=== PATIENT | male | born 1980 | race Caucasian/White ===

== ENCOUNTER 2017-04-25 09:30 | Inpatient (IN) | payer MEDICARE ==
[~2017-04-25] VITALS: Ht 170.2 cm; Wt 77.1 kg
[2017-04-25] MEDS ORDERED: OLAN10TA3 PO (09:52)
[2017-04-25] MEDS ORDERED: VIST50 PO (09:52)
[2017-04-25] MEDS ORDERED: DIVA500T52 PO (09:52)
[2017-04-25 10:06] LABS: BASOPHILS % (AUTO) 0.7 % (0.0-2.0); EOSINOPHILS % (AUTO) 0.1 % (1.0-6.0); HEMATOCRIT 35.7 % (41-53); HEMOGLOBIN 12.4 g/dL (13.5-17.5); LYMPHOCYTES # (AUTO) 2.6 K/uL (1.0-4.8); LYMPHOCYTES % (AUTO) 19.7 % (22.0-44.0); MEAN CORPUSCULAR HEMOGLOBIN 30.3 pg (26.0-34.0); MEAN CORPUSCULAR HGB CONC 34.7 G/dL (31.0-37.0); MEAN CORPUSCULAR VOLUME 87 fL (80-100); MONOCYTES # (AUTO) 1.3 K/uL (0.1-1.0); MONOCYTES % (AUTO) 9.6 % (2.0-9.0); NEUTROPHILS # (AUTO) 9.3 K/uL (1.8-7.7); NEUTROPHILS % (AUTO) 69.9 % (40.0-70.0); PLATELET COUNT (AUTO) 205 K/uL (150-450); RED BLOOD CELL COUNT(AUTO) 4.09 MIL/uL (4.50-5.90); RED CELL DISTRIBUTION WIDTH 14.1 % (11.5-14.5)
[2017-04-25] MEDS ORDERED: HALOPERIDOL 5 MG TABLET PO ONE (10:15)
[2017-04-25] MEDS ORDERED: AMOX TR/POT CLAV 875 MG/125 MG TABLET PO ONE (10:15)
[2017-04-25] MEDS ORDERED: LORazepam 2 MG TABLET PO ONE (10:15)
[2017-04-25 10:18] LABS: ANION GAP 10 mmol/L (8-16); CALCIUM, TOTAL 8.8 mg/dL (8.8-10.5); CARBON DIOXIDE 28 mmol/L (22-29); CHLORIDE 101 mmol/L (98-107); CREATININE 1.12 mg/dL (0.60-1.30); GLOMERULAR FILTR. RATE CALC > 60 mL/min (>60); GLUCOSE,RANDOM 94 mg/dL (70-110); POTASSIUM 4.2 mmol/L (3.5-5.1); SODIUM SERUM 139 mmol/L (136-145); UREA NITROGEN, BLOOD 24 mg/dL (7-18)
[2017-04-25 10:23] LABS: ALANINE AMINOTRANSFERASE 36 U/L (12-78); ALBUMIN 3.6 g/dL (3.4-5.0); ALKALINE PHOSPHATASE 73 U/L (46-116); ASPARTATE AMINOTRANSFERASE 41 U/L (15-37); BILIRUBIN,TOTAL 0.6 mg/dL (0.1-1.0); TOTAL PROTEIN, SERUM 7.8 g/dL (6.4-8.2)
[2017-04-25] MEDS: PERTUSS(ACELL),DIPH,TET VAC/PF 0.5 ML VIAL IM ONE ×2 (10:48→10:54)
[2017-04-25] MEDS ORDERED: ACETAMINOPHEN 325 MG TABLET PO PRN (13:45)
[2017-04-25] MEDS ORDERED: BACITRACIN 28.4 GM OINTMENT TP PRN (13:45)
[2017-04-25] MEDS ORDERED: LOPERAMIDE HCL 2 MG CAPSULE PO PRN (13:45)
[2017-04-25] MEDS ORDERED: MAGNESIUM HYDROXIDE SUSPENSION 30 ML UDCUP PO PRN (13:45)
[2017-04-25] MEDS ORDERED: PETROLATUM,WHITE 71 GM JELLY TP PRN (13:45)
[2017-04-25] MEDS ORDERED: BENZOCAINE/MENTHOL LOZENGE MM PRN (13:45)
[2017-04-25] MEDS ORDERED: ALBUTEROL SULFATE HFA 90 MCG/PUFF 8 GM INHALER IH PRN (13:45)
[2017-04-25] MEDS ORDERED: CloNIDine HCL 0.1 MG TABLET PO PRN (13:45)
[2017-04-25] MEDS ORDERED: ONDANSETRON HCL 4 MG TABLET PO PRN (13:45)
[2017-04-25] MEDS ORDERED: MAG HYDROX/AL HYDROX/SIMETH ES 30 ML SUSPENSION UDCUP PO PRN (13:45)
[2017-04-25 16:00] VITALS: BP 116/71
[2017-04-25] MEDS: MUPIROCIN CALCIUM 2% 15 GM CREAM TP SCH (17:16)
[2017-04-25] MEDS: AMOX TR/POT CLAV 875 MG/125 MG TABLET PO SCH (17:16)
[2017-04-25] MEDS: HALOPERIDOL 5 MG TABLET PO SCH (17:16)
[2017-04-25] MEDS: BENZTROPINE MESYLATE 1 MG TABLET PO SCH (17:16)
[2017-04-25] MEDS: LORazepam 2 MG TABLET PO PRN (17:17)
[2017-04-26] MEDS ORDERED: PNEUMOCOCCAL VACCINE POLYVALENT 0.5 ML VIAL [PPSV23] IM ONE (00:45)
[2017-04-26] MEDS ORDERED: INFLUENZA VIRUS VACCINE QVS 2017-18 (3YR+)/PF 60 MCG/0.5 ML SYRINGE IM ONE (02:30)
[2017-04-26 06:31] VITALS: BP 119/63
[2017-04-26 08:16] VITALS: BP 109/65
[2017-04-26 08:28] LABS: BASOPHILS % (AUTO) 0.2 % (0.0-2.0); EOSINOPHILS % (AUTO) 0.1 % (1.0-6.0); HEMATOCRIT 38.1 % (41-53); LYMPHOCYTES # (AUTO) 1.7 K/uL (1.0-4.8); LYMPHOCYTES % (AUTO) 12.8 % (22.0-44.0); MEAN CORPUSCULAR HEMOGLOBIN 30.1 pg (26.0-34.0); MEAN CORPUSCULAR HGB CONC 34.2 G/dL (31.0-37.0); MEAN CORPUSCULAR VOLUME 88 fL (80-100); MONOCYTES # (AUTO) 1.4 K/uL (0.1-1.0); MONOCYTES % (AUTO) 10.7 % (2.0-9.0); NEUTROPHILS # (AUTO) 9.9 K/uL (1.8-7.7); NEUTROPHILS % (AUTO) 76.2 % (40.0-70.0); PLATELET COUNT (AUTO) 198 K/uL (150-450); RED BLOOD CELL COUNT(AUTO) 4.33 MIL/uL (4.50-5.90); RED CELL DISTRIBUTION WIDTH 14.2 % (11.5-14.5)
[2017-04-26 08:33] LABS: CHOL/HDL RATIO 3.1 (4.2-7.3); THYROID STIMULATING HORMONE 1.09 uIU/mL (0.36-3.74)
[2017-04-26] MEDS: BENZTROPINE MESYLATE 1 MG TABLET PO SCH ×2 (09:03→17:49)
[2017-04-26] MEDS: HALOPERIDOL 5 MG TABLET PO SCH ×2 (09:03→17:49)
[2017-04-26] MEDS: AMOX TR/POT CLAV 875 MG/125 MG TABLET PO SCH ×2 (09:03→17:49)
[2017-04-26] MEDS: MUPIROCIN CALCIUM 2% 15 GM CREAM TP SCH ×2 (09:07→17:49)
[2017-04-26] MEDS: LORazepam 2 MG TABLET PO PRN ×2 (14:12→22:30)
[2017-04-26 16:00] VITALS: BP 118/67
[2017-04-26] MEDS: ZOLPIDEM TARTRATE 10 MG TABLET PO PRN (22:44)
[2017-04-27] VITALS (8 sets, daily range): BP systolic 110–128; BP diastolic 63–87
[2017-04-27] MEDS: IBUPROFEN 600 MG TABLET PO PRN (00:08)
[2017-04-27] MEDS: AMOX TR/POT CLAV 875 MG/125 MG TABLET PO SCH ×2 (07:35→17:33)
[2017-04-27] MEDS: BENZTROPINE MESYLATE 1 MG TABLET PO SCH (07:36)
[2017-04-27] MEDS: HALOPERIDOL 5 MG TABLET PO SCH (07:36)
[2017-04-27] MEDS: LORazepam 2 MG TABLET PO PRN ×2 (07:36→14:47)
[2017-04-27] MEDS: MUPIROCIN CALCIUM 2% 15 GM CREAM TP SCH ×2 (09:00→17:34)
[2017-04-27] MEDS: BENZTROPINE MESYLATE 2 MG TABLET PO SCH (17:33)
[2017-04-27] MEDS: HALOPERIDOL 10 MG TABLET PO SCH (17:33)
[2017-04-28 02:19] VITALS: BP 116/72
[2017-04-28] MEDS: HALOPERIDOL 5 MG TABLET PO PRN (02:30)
[2017-04-28] MEDS: LORazepam 2 MG TABLET PO PRN ×3 (02:30→17:06)
[2017-04-28] MEDS: HALOPERIDOL 10 MG TABLET PO SCH ×3 (08:34→17:24)
[2017-04-28] MEDS: AMOX TR/POT CLAV 875 MG/125 MG TABLET PO SCH ×2 (08:34→17:06)
[2017-04-28] MEDS: BENZTROPINE MESYLATE 2 MG TABLET PO SCH (08:34)
[2017-04-28 08:41] VITALS: BP 124/70
[2017-04-28] MEDS: MUPIROCIN CALCIUM 2% 15 GM CREAM TP SCH ×2 (10:01→17:06)
[2017-04-28 12:33] VITALS: BP 128/74
[2017-04-28] MEDS: IBUPROFEN 600 MG TABLET PO PRN (12:33)
[2017-04-28] MEDS: BENZTROPINE MESYLATE 1 MG TABLET PO SCH (17:06)
[2017-04-28 17:44] VITALS: BP 109/62
[2017-04-28] MEDS: DIVALPROEX SODIUM 500 MG ER TABLET PO SCH (20:14)
[2017-04-28] MEDS: ZOLPIDEM TARTRATE 10 MG TABLET PO PRN (21:46)
[2017-04-29 00:50] VITALS: BP 120/82
[2017-04-29] MEDS: HALOPERIDOL 5 MG TABLET PO PRN (00:53)
[2017-04-29] MEDS: LORazepam 2 MG TABLET PO PRN ×4 (00:53→21:29)
[2017-04-29 08:18] VITALS: BP 119/75
[2017-04-29] MEDS: BENZTROPINE MESYLATE 1 MG TABLET PO SCH ×2 (10:09→16:17)
[2017-04-29] MEDS: HALOPERIDOL 10 MG TABLET PO SCH ×2 (10:09→16:17)
[2017-04-29] MEDS: AMOX TR/POT CLAV 875 MG/125 MG TABLET PO SCH ×2 (10:10→16:17)
[2017-04-29] MEDS: MUPIROCIN CALCIUM 2% 15 GM CREAM TP SCH ×2 (10:11→16:17)
[2017-04-29 16:10] VITALS: BP 125/76
[2017-04-29] MEDS: DIVALPROEX SODIUM 500 MG ER TABLET PO SCH (20:36)
[2017-04-29] MEDS: ZOLPIDEM TARTRATE 10 MG TABLET PO PRN (21:52)
[2017-04-30 04:43] VITALS: BP 114/68
[2017-04-30] MEDS: LORazepam 2 MG TABLET PO PRN (04:48)
[2017-04-30] MEDS ORDERED: DIVA500T35 PO (07:37)
[2017-04-30] MEDS ORDERED: HALO10 PO (07:37)
[2017-04-30] MEDS ORDERED: MUPI15CR TP (07:37)
[2017-04-30] MEDS ORDERED: BENZ2TAB10 PO (07:37)
[2017-04-30] MEDS ORDERED: AMOX1TAB16 PO (07:37)
[2017-04-30] MEDS: BENZTROPINE MESYLATE 1 MG TABLET PO SCH (08:20)
[2017-04-30] MEDS: AMOX TR/POT CLAV 875 MG/125 MG TABLET PO SCH (08:20)
[2017-04-30] MEDS: HALOPERIDOL 10 MG TABLET PO SCH (08:20)
[2017-04-30] MEDS: MUPIROCIN CALCIUM 2% 15 GM CREAM TP SCH (08:20)
[2017-04-30 08:21] LABS: HEMATOCRIT 32.8 % (41-53); HEMOGLOBIN 11.2 g/dL (13.5-17.5); MEAN CORPUSCULAR HEMOGLOBIN 30.2 pg (26.0-34.0); MEAN CORPUSCULAR VOLUME 89 fL (80-100); PLATELET COUNT (AUTO) 195 K/uL (150-450); RED BLOOD CELL COUNT(AUTO) 3.69 MIL/uL (4.50-5.90); RED CELL DISTRIBUTION WIDTH 13.7 % (11.5-14.5)
[2017-04-30 08:27] LABS: ANION GAP 7 mmol/L (8-16); CALCIUM, TOTAL 8.6 mg/dL (8.8-10.5); CARBON DIOXIDE 30 mmol/L (22-29); CHLORIDE 105 mmol/L (98-107); CREATININE 0.79 mg/dL (0.60-1.30); GLOMERULAR FILTR. RATE CALC > 60 mL/min (>60); GLUCOSE,RANDOM 84 mg/dL (70-110); PHOSPHORUS 3.5 mg/dL (2.5-4.9); POTASSIUM 4.9 mmol/L (3.5-5.1); SODIUM SERUM 142 mmol/L (136-145); UREA NITROGEN, BLOOD 12 mg/dL (7-18)
[2017-04-30 09:17] VITALS: BP 117/73
[2017-04-30 10:00] LABS: LYMPHOCYTES % (MANUAL) 28 % (22-44); MONOCYTES % (MANUAL) 5 % (2-9); SEGMENTED NEUTROPHILS % 67 % (40-70)
== END 2017-04-30 11:00 | disposition home or self-care (01) | DRG 885 ==
LOC: EMS 09:31 → B3A 12:34 → B2S 04-28 00:54
PROVIDERS: ADMIT Psychiatry & Neurology Psychiatry; ATTEND Psychiatry & Neurology Psychiatry
PROC: 3E0234Z Introduction of Serum, Toxoid and Vaccine into Muscle, Percutaneous Approach (ICD-10-PCS; principal; 2017-04-26)
DX: F29 Unspecified psychosis not due to a substance or known physiological condition (principal); R45.851 Suicidal ideations; F15.20 Other stimulant dependence, uncomplicated; E11.9 Type 2 diabetes mellitus without complications; D64.9 Anemia, unspecified; D72.829 Elevated white blood cell count, unspecified; E55.9 Vitamin D deficiency, unspecified; F12.90 Cannabis use, unspecified, uncomplicated; L40.9 Psoriasis, unspecified; M79.672 Pain in left foot; F41.9 Anxiety disorder, unspecified; F17.210 Nicotine dependence, cigarettes, uncomplicated; Z59.0 Homelessness; Z79.899 Other long term (current) drug therapy; Z91.19 Patient's noncompliance with other medical treatment and regimen; Z88.8 Allergy status to other drugs, medicaments and biological substances; Z71.51 Drug abuse counseling and surveillance of drug abuser; Z23 Encounter for immunization
CPT/HCPCS: 80074; 82306; 83735; 84100; 84443; 85007; 90471; 90715; 99285; G0480

== ENCOUNTER 2017-04-27 19:24 | Emergency (ER) | payer OTHER, MEDICARE ==
[~2017-04-27] VITALS: Ht 180.3 cm; Wt 90.0 kg
[~2017-04-27 19:24] MED LIST: DIVA500T52 PO; OLAN10TA3 PO; VIST50 PO
[2017-04-27] MEDS: IBUPROFEN 800 MG TABLET PO ONE (22:37)
[2017-04-27 23:38] VITALS: BP 132/64
== END 2017-04-28 01:47 | disposition home or self-care (01) ==
LOC: EMS 19:26
DX: S00.83XA Contusion of other part of head, initial encounter (principal); S00.03XA Contusion of scalp, initial encounter; S10.93XA Contusion of unspecified part of neck, initial encounter; E11.9 Type 2 diabetes mellitus without complications; Z88.8 Allergy status to other drugs, medicaments and biological substances; Y09 Assault by unspecified means; Y93.89 Activity, other specified; Y92.89 Other specified places as the place of occurrence of the external cause; Y99.8 Other external cause status
CPT/HCPCS: 70100; 72040; 99284

== ENCOUNTER 2020-03-04 11:19 | Emergency (ER) | payer MEDICARE, OTHER, SELFPAY ==
[~2020-03-04] VITALS: Ht 180.3 cm; Wt 118.2 kg
[~2020-03-04 11:19] MED LIST changes: +AMOX1TAB16 PO; +BENZ2TAB10 PO; +DIVA-112 PO; -DIVA500T52 PO; +HALO10 PO; +MUPI15CR TP; -OLAN10TA3 PO; -VIST50 PO
[2020-03-04 11:21] VITALS: BP 117/72
[2020-03-04] MEDS ORDERED: IBUP-2070 PO (11:31)
[2020-03-04] MEDS ORDERED: AMOXICILLIN TRIHYDRATE 250 MG CAPSULE PO ONE (11:45)
[2020-03-04] MEDS ORDERED: IBUPROFEN 800 MG TABLET PO ONE (11:45)
== END 2020-03-04 12:37 | disposition home or self-care (01) ==
LOC: EMS 12:03
DX: K02.9 Dental caries, unspecified (principal); K08.89 Other specified disorders of teeth and supporting structures; F31.9 Bipolar disorder, unspecified; F20.9 Schizophrenia, unspecified; E11.9 Type 2 diabetes mellitus without complications; F17.210 Nicotine dependence, cigarettes, uncomplicated; F12.90 Cannabis use, unspecified, uncomplicated; Z88.8 Allergy status to other drugs, medicaments and biological substances
CPT/HCPCS: 99406